=== PATIENT | male | born 1990 | race Caucasian/White ===

== ENCOUNTER 2020-06-10 18:55 | Emergency (ER) | payer OTHER, SELFPAY ==
[2020-06-10 19:02] VITALS: BP 115/63; PULSE 95; RESP 16; TEMP 36.4; O2SAT 99; BMI 26.4
== END 2020-06-10 22:20 | disposition left against medical advice (07) ==
LOC: HO.ED 22:20
PROVIDERS: Emergency Provider Emergency Medicine
DX: I10 Essential (primary) hypertension (principal)
CPT/HCPCS: 99281; 99282

== ENCOUNTER → 2020-06-17 13:42 | Outpatient (BNVA) | payer OTHER, SELFPAY | PROVIDERS: Visit Provider Physician Assistant | DX: Z76.89 Persons encountering health services in other specified circumstances (principal) ==

== ENCOUNTER 2020-07-12 02:31 | Emergency (ER) | payer OTHER, SELFPAY ==
[2020-07-12 02:33] VITALS: BP 114/67; PULSE 70; RESP 18; TEMP 36.6; O2SAT 98; BMI 27.7
--- NOTE | 2020-07-12 03:42 | PC.NURSE ---
PT REPORTS FRONTAL HEADACHEx1 WEEK. ASSOCIATED DIZZINESS. HEADACHE SQUEEZING IN NATURE. NO RELIEF FROM OTC TYLENOL. MD AT BEDSIDE FOR PRIMARY EVAL.
[2020-07-12 03:47] VITALS: BP 115/83; PULSE 78; RESP 18; O2SAT 98
--- NOTE | 2020-07-12 04:13 | ED_ITS ---
HPI - Headache General Chief Complaint: Headache Stated Complaint: headache Time Seen by Provider: 07/12/20 03:25 Source: patient Mode of arrival: ambulatory Limitations: no limitations History of Present Illness HPI Narrative: This is a 30-year-old male who presents with complaints of headache for the past 7 days that is not been associated with any fevers, chills, recent travel, personal or family history of intracranial abnormalities, changes in hearing, visual changes, photosensitivity, neck stiffness. Patient states that the headache is squeezing in nature and is like a band around his forehead and jehovah's witness area. However, patient denies any increase in pain with bending forward and states that the headache does not have a particular time of day and has been easily relieved by taking to 500 mg tablets of Tylenol. Patient states that he again woke up with a headache this morning and this prompted him to be further evaluated. In addition, patient denies any associated speech or unilateral numbness/weakness/tingling. Related Data Previous Rx's Medication Instructions Recorded pantoprazole 40 mg tablet,delayed 40 mg PO DAILY #30 tab 06/09/20 release sildenafil 100 mg tablet 100 mg PO DAILY PRN 30 Days #6 tab 07/01/20 Allergies Allergy/AdvReac Type Severity Reaction Status Date / Time No Known Allergies Allergy Unverified 04/16/20 19:12 [No Known Allergies*] Pt states no food/medication Allergy Unknown Uncoded 01/28/20 00:00 a Review of Systems Review of Systems: Pertinent positives and negatives as stated in HPI 10 point review of systems otherwise negative. [facility] Past Medical History Source: nursing notes reviewed Medical History H. pylori infection Surgical History S/P gastric bypass Family History Family History Father Bone cancer Hypertension Diabetes mellitus Hypercholesteremia Mother Diabetes mellitus Daughter Asthma Brother No problems noted. Brother No problems noted. Brother No problems noted. Brother No problems noted. Brother No problems noted. Sister No problems noted. Social History Social History Alcohol intake: current Alcohol intake frequency: a few times a month Smoking Status: Never smoker Cigarettes Per Day: 5 Use of substances other than those prescribed or required for medical reasons: No Advance Directives: No Advance Directives Information Provided: No Physical Exam Vital Signs: Vital Signs: Last Vital Signs Temp 97.9 F 07/12/20 02:33 Pulse 78 07/12/20 03:47 Resp 18 07/12/20 03:47 BP 115/83 07/12/20 03:47 Pulse Ox 98 07/12/20 03:47 Body Mass Index 27.7 VITAL SIGNS: Reviewed. GENERAL: Well developed, well nourished, in no acute distress. HEAD: Normocephalic/atraumatic, EYES: PERRLA, EOMI intact without pain, no nystagmus/pallor/icterus noted EARS: Ext canals without abnormality, TMs non-bulging and non-erythematous NOSE: Nares patent bilateral OROPHARYNX: no oral lesions noted, posterior pharynx clear and non-erythematous without noted tonsillar enlargement/erythema/exudates NECK: Supple, no adenopathy LUNGS: Normal breath sounds. No adventitious sounds or accessory muscle use. SpO2<98> CARDIOVASCULAR: Regular rate and rhythm without noted murmurs, no JVD or lower extremity edema. ABDOMEN: Soft, non-tender, non-distended with bowel sounds. No rigidity. No guarding. No palpable masses or hernias noted MUSCULOSKELETAL: No tenderness, deformities, or effusions noted on gross inspec tion. EXTREMITIES: No cyanosis, clubbing or edema. SKIN: Inspection of the skin reveals no rashes, ulcerations, jaundice, pallor, or petechiae. NEUROLOGIC: Alert and oriented x 4. Strength and sensation to light touch were grossly intact x 4, cerebellar testing is intact, no pronator drift, no gaze palsies. Course Course Course Narrative: This is a 30-year-old male with history and clinical presentation most consistent with tension headache that has no alarm symptoms associated with his headaches and is well controlled with [id number] Tylenol. He was provided with combination analgesics here in the emergency department which included a 1 time dose 15 mg of Toradol which it is noted is not recommended for patient is status post bariatric surgery, however given that this was a 1 time administration it was determined to be appropriate in accomplishing expedient symptom relief of headache. On re-evaluation patient has had complete resolution of his headache. Plan and reassurance was provided to the patient and he was strongly encouraged to follow-up with his primary care provider for re-evaluation and further outpatient management as indicated. Discharge Plan Discharge Clinical Impression: Tension headache Patient Disposition: Home, Self-Care Instructions: Tension Headache (ED), General Headache (ED) Additional Instructions: Tylenol 1000 mg, orally, every 6 hours as needed for pain control. Do not exceed 4000 mg within 24 hours. Please return to the emergency department if he develops any alarm symptoms such as leg or arm numbness/tingling/weakness, speech changes, unsteady gait. Prescriptions: No Action pantoprazole 40 mg tablet,delayed release (DR/EC) 40 mg PO DAILY Qty: 30 RF: 3 sildenafil 100 mg tablet 100 mg PO DAILY PRN (Reason: sexual activity) 30 Days Qty: 6 RF: 6 Referrals: Physician,Unknown [Primary Care Provider] - 2 days (Re-evaluation and outpatient management of headache.)
[2020-07-12] MEDS: Acetaminophen 325 MG TABLET 975 MG PO (04:21)
[2020-07-12] MEDS: Ketorolac Tromethamine 15 MG/ML VIAL IM (04:21)
--- NOTE | 2020-07-12 04:31 | PC.NURSE ---
PT MEDICATED PER MAR, AWAITING IMPROVEMENT IN SYMPTOMS.
== END 2020-07-12 05:46 | disposition home or self-care (01) ==
PROVIDERS: Emergency Provider Student in an Organized Health Care Education/Training Program
DX: G44.209 Tension-type headache, unspecified, not intractable (principal); Z98.84 Bariatric surgery status; Z79.899 Other long term (current) drug therapy
CPT/HCPCS: 96372; 99284; J1885

== ENCOUNTER 2020-11-22 20:53 | Emergency (ER) | payer OTHER, SELFPAY ==
[2020-11-22 21:19] VITALS: BP 133/61; PULSE 82; RESP 18; TEMP 36.8; O2SAT 99; BMI 29.9
[2020-11-22 21:37] LABS: MANUAL DIFF FLAG NO
[2020-11-22 21:38] LABS: Basophils Percent Auto 0.3 % (0-2); Eosinophils Absolute Auto 0.3 X10*3/uL (0.0-0.4); Glucose Urine UA NEG (NEG); Hematocrit 45.6 % (42-52); Hemoglobin 15.2 g/dl (14.0-18.0); Imm Gran Abs Auto 0.02 X10*3/uL (0.00-0.03); Imm Gran Pct Auto 0.2 % (0.0-0.4); Leukocyte Esterase Urine NEG (NEG); Lymphocytes Absolute Auto 2.9 X10*3/uL (1.2-4.9); Lymphocytes Percent Auto 29.4 % (20-40); Mean Corpuscular HGB Conc 33.3 g/dl (31.0-36.0); Mean Corpuscular Hemoglobin 28.3 pg (27.0-33.0); Mean Corpuscular Volume 84.9 fL (80-98); Mean Platelet Volume 10.4 fL (9.4-12.4); Monocytes Absolute Auto 0.9 X10*3/uL (0.1-1.2); Monocytes Percent Auto 8.9 % (2-11); Neutrophils Absolute Auto 5.6 X10*3/uL (2.0-8.3); Neutrophils Percent Auto 58.2 % (45-73); Nitrite Urine NEG (NEG); PH 5.5 (5.0-8.0); Platelet Count 238 X10*3/uL (160-400); Red Blood Count 5.37 X10*6/uL (4.60-5.80); Red Cell Distribution Width 12.4 % (11.0-16.0); Specific Gravity - Urine >= 1.030 (1.005-1.025); Urine Blood NEG (NEG); Urine Ketones 5 MG/DL (NEG); Urine Protein NEG (NEG-TRACE); White Blood Count 9.7 X10*3/uL (4.8-10.8)
[2020-11-22 21:39] LABS: Appearance Urine CLEAR; Color Urine YELLOW
[2020-11-22 22:02] LABS: Alanine Aminotransferase 18 U/L (0-40); Albumin Level 4.4 g/dL (3.5-5.0); Alkaline Phosphatase 58 U/L (39-117); Anion Gap 13 (12-20); Aspartate Amino Transferase 17 U/L (5-37); Bilirubin Total 0.5 mg/dL (0.0-1.0); Blood Urea Nitrogen 14 mg/dL (9-16); Calcium 9.3 mg/dL (8.4-10.2); Carbon Dioxide 25 mmol/L (22-29); Chloride 106 mmol/L (96-108); Creatinine Clr Calc Pharmacy 185.4; Estimated Glomerular Filt Rate > 60; Glucose Random 108 mg/dL (60-115); Potassium 3.9 mmol/L (3.3-5.1); Sodium 140 mmol/L (135-145); Total Protein 7.4 g/dL (6.5-8.0)
[2020-11-22] MEDS: Acetaminophen 325 MG TABLET 975 MG PO (23:20)
[2020-11-22] MEDS: Metoclopramide HCl 10 MG TABLET PO (23:20)
[2020-11-22] MEDS: diphenhydrAMINE HCL 25 MG TABLET 50 MG PO (23:20)
--- NOTE | 2020-11-22 23:21 | ED.HA ---
HPI - Headache General Chief Complaint: Headache Stated Complaint: Headache Time Seen by Provider: 11/22/20 22:55 Source: patient Mode of arrival: ambulatory Limitations: no limitations History of Present Illness HPI Narrative: Patient is a 30-year-old male who is status post gastric bypass complaining of headache x1 day. He states it is in his temples and it is a throbbing pain but he has not tried to take any medications to make it better. He states he does drink a lot of coffee and that has not helped. He states he gets them once in a while because he never sleeps more than 4 hours at a time. He denies any nausea vomiting dizziness blurry vision, sensitivity to light or noise. Denies fevers Related Data Previous Rx's Medication Instructions Recorded pantoprazole 40 mg tablet,delayed 40 mg PO DAILY #30 tab 06/09/20 release sildenafil 100 mg tablet 100 mg PO DAILY PRN 30 Days #6 tab 07/01/20 Allergies Allergy/AdvReac Type Severity Reaction Status Date / Time No Known Allergies Allergy Unverified 04/16/20 19:12 [No Known Allergies*] Pt states no food/medication Allergy Unknown Uncoded 01/28/20 00:00 a Review of Systems Review of Systems: Yes all other systems are reviewed and are negative ENT: Reports Normal hearing present Neurologic: Reports Normal hearing present and Denies Abnormal speech present [facility] Past Medical History Medical History H. pylori infection Surgical History S/P gastric bypass Family History Family History Father Bone cancer Hypertension Diabetes mellitus Hypercholesteremia Mother Diabetes mellitus Daughter Asthma Brother No problems noted. Brother No problems noted. Brother No problems noted. Brother No problems noted. Brother No problems noted. Sister No problems noted. Social History Social History Alcohol intake: current Alcohol intake frequency: a few times a month Smoking Status: Never smoker Cigarettes Per Day: 5 Advance Directives: No Advance Directives Information Provided: Yes Physical Exam Vital Signs: Vital Signs: Last Vital Signs Temp 98.3 F 11/22/20 21:19 Pulse 82 11/22/20 21:19 Resp 18 11/22/20 21:19 BP 133/61 11/22/20 21:19 Pulse Ox 99 11/22/20 21:19 Body Mass Index 29.9 Const: General: cooperative, healthy appearing, comfortable and no acute distress Nutritional Appearance: average body habitus Orientation/consciousness: patient oriented x3 HENMT: Head: Yes normal to inspection, Yes normocephalic and Yes atraumatic Ears: hearing grossly normal bilaterally General nose exam: Normal external nose present Face and sinus: Yes normal facial exam Eyes: General: appearance normal, both eyes and all related structures Pupils: Equal, round and reactive pupils present EOM: EOMs intact bilaterally and No Nystagmus present Neck: Neck: Yes normal visual inspection, Yes full ROM and Yes supple Resp: Effort & Inspection: normal respiratory effort and able to speak in complete sentences Neuro: General: patient oriented x3 Cranial nerves: Yes Equal, round and reactive pupils present, Yes Nystagmus not present, Yes Normal facial strength present, Yes Midline tongue present, Yes Normal hearing present, Yes Ability to bilaterally rotate head present and No Nystagmus present Cognition (Neuro): normal cognition Speech: No Abnormal speech present Gait exam (Neuro): Normal gait present Course Course Course Narrative: Patient is a 30-year-old male with headache x1 day, has not tried to take any medications. All labs are within normal limits, will give a migraine cocktail and reassess. Educated patient on migraine triggers as well as migraine management at home. Also advised patient he should seek with his PCP regarding his sleep issues, if that is his trigger. Reevaluation(s) Reevaluation #1: Patient reports he is feeling much better, will discharge home. Time: 23:54 MDM - Headache Lab Data Result diagrams: 11/22/20 21:30 11/22/20 21:30 Labs: Lab Results 11/22/20 11/22/20 11/22/20 Range/Units 21:30 21:30 21:30 WBC 9.7 (4.8-10.8) X10*3/uL RBC 5.37 (4.60-5.80) X10*6/uL Hgb 15.2 (14.0-18.0) g/dl Hct 45.6 (42-52) % MCV 84.9 (80-98) fL MCH 28.3 (27.0-33.0) pg MCHC 33.3 (31.0-36.0) g/dl RDW 12.4 (11.0-16.0) % Plt Count 238 (160-400) X10*3/uL MPV 10.4 (9.4-12.4) fL Immature Gran % (Auto) 0.2 (0.0-0.4) % Neut % (Auto) 58.2 (45-73) % Lymph % (Auto) 29.4 (20-40) % [place] % (Auto) 8.9 (2-11) % Eos % (Auto) 3.0 (0-4) % Baso % (Auto) 0.3 (0-2) % Lymph # (Auto) 2.9 (1.2-4.9) X10*3/uL [place] # (Auto) 0.9 (0.1-1.2) X10*3/uL Eos # (Auto) 0.3 (0.0-0.4) X10*3/uL Baso # (Auto) 0.0 (0.0-0.2) X10*3/uL Abs Immat Gran (auto) 0.02 (0.00-0.03) X10*3/uL Absolute Neuts (auto) 5.6 (2.0-8.3) X10*3/uL Absolute Nucleated RBC 0.000 (0.0-0.012) X10*3/uL Nucleated RBC % (auto) 0.0 (0.0-0.2) /100WBC Hold Blue Top SEE NOTE Sodium 140 (135-145) mmol/L Potassium 3.9 (3.3-5.1) mmol/L Chloride 106 (96-108) mmol/L Carbon Dioxide 25 (22-29) mmol/L Anion Gap 13 (12-20) BUN 14 (9-16) mg/dL Creatinine 0.86 (0.5-1.4) mg/dL Estim Creat Clear Calc 185.4 Estimated GFR > 60 Random Glucose 108 (60-115) mg/dL Calcium 9.3 (8.4-10.2) mg/dL Total Bilirubin 0.5 (0.0-1.0) mg/dL AST 17 (5-37) U/L ALT 18 (0-40) U/L Alkaline Phosphatase 58 (39-117) U/L Total Protein 7.4 (6.5-8.0) g/dL Albumin 4.4 (3.5-5.0) g/dL Urine Color Urine Appearance Urine pH (5.0-8.0) Ur Specific [place] (1.005-1.025) Urine Protein (NEG-TRACE) MG/DL Urine Glucose (UA) (NEG) MG/DL Urine Ketones (NEG) MG/DL Urine Blood (NEG) Urine Nitrite (NEG) Ur Leukocyte Esterase (NEG) 11/22/20 Range/Units 21:30 WBC (4.8-10.8) X10*3/uL RBC (4.60-5.80) X10*6/uL Hgb (14.0-18.0) g/dl Hct (42-52) % MCV (80-98) fL MCH (27.0-33.0) pg MCHC (31.0-36.0) g/dl RDW (11.0-16.0) % Plt Count (160-400) X10*3/uL MPV (9.4-12.4) fL Immature Gran % (Auto) (0.0-0.4) % Neut % (Auto) (45-73) % Lymph % (Auto) (20-40) % [place] % (Auto) (2-11) % Eos % (Auto) (0-4) % Baso % (Auto) (0-2) % Lymph # (Auto) (1.2-4.9) X10*3/uL [place] # (Auto) (0.1-1.2) X10*3/uL Eos # (Auto) (0.0-0.4) X10*3/uL Baso # (Auto) (0.0-0.2) X10*3/uL Abs Immat Gran (auto) (0.00-0.03) X10*3/uL Absolute Neuts (auto) (2.0-8.3) X10*3/uL Absolute Nucleated RBC (0.0-0.012) X10*3/uL Nucleated RBC % (auto) (0.0-0.2) /100WBC Hold Blue Top Sodium (135-145) mmol/L Potassium (3.3-5.1) mmol/L Chloride (96-108) mmol/L Carbon Dioxide (22-29) mmol/L Anion Gap (12-20) BUN (9-16) mg/dL Creatinine (0.5-1.4) mg/dL Estim Creat Clear Calc Estimated GFR Random Glucose (60-115) mg/dL Calcium (8.4-10.2) mg/dL Total Bilirubin (0.0-1.0) mg/dL AST (5-37) U/L ALT (0-40) U/L Alkaline Phosphatase (39-117) U/L Total Protein (6.5-8.0) g/dL Albumin (3.5-5.0) g/dL Urine Color YELLOW Urine Appearance CLEAR Urine pH 5.5 (5.0-8.0) Ur Specific [place] >= 1.030 H (1.005-1.025) Urine Protein NEG (NEG-TRACE) MG/DL Urine Glucose (UA) NEG (NEG) MG/DL Urine Ketones 5 (NEG) MG/DL Urine Blood NEG (NEG) Urine Nitrite NEG (NEG) Ur Leukocyte Esterase NEG (NEG) Discharge Plan Discharge Clinical Impression: Headache Patient Disposition: Home, Self-Care Instructions: Acute Headache (ED) Additional Instructions: As we discussed, please stay way from anything that triggers your migraines such as caffeine, chocolate and red wine, it is also imperative you get a good night's sleep and stay hydrated. I would recommend following up with your primary care doctor to address her sleep issues to avoid having migraines in the future. Also if this happens again, you can try taking some Benadryl with some Excedrin for relief. Follow the instructions on the bottles. Prescriptions: No Action pantoprazole 40 mg tablet,delayed release (DR/EC) 40 mg PO DAILY Qty: 30 RF: 3 sildenafil 100 mg tablet 100 mg PO DAILY PRN (Reason: sexual activity) 30 Days Qty: 6 RF: 6
== END 2020-11-23 00:02 | disposition home or self-care (01) ==
PROVIDERS: Emergency Provider Student in an Organized Health Care Education/Training Program
DX: R51.9 Headache, unspecified (principal); Z98.84 Bariatric surgery status
CPT/HCPCS: 36415; 80053; 81003; 85025; 99283; Q0163

== ENCOUNTER → 2021-01-26 13:59 | Outpatient (BNVA) | payer OTHER, SELFPAY | PROVIDERS: Visit Provider Physician Assistant | DX: E66.9 Obesity, unspecified (principal); Z68.31 Body mass index [BMI] 31.0-31.9, adult; Z98.84 Bariatric surgery status | CPT/HCPCS: 99212 ==

== ENCOUNTER → 2021-01-27 15:29 | Outpatient (BNVA) | payer OTHER, SELFPAY | PROVIDERS: Visit Provider Urology | DX: N52.9 Male erectile dysfunction, unspecified (principal) | CPT/HCPCS: 99212 ==

== ENCOUNTER 2021-03-30 03:40 | Emergency (ER) | payer OTHER, SELFPAY ==
[2021-03-30 03:55] VITALS: BP 127/73; PULSE 76; RESP 18; TEMP 36.4; O2SAT 98; BMI 23.1
--- NOTE | 2021-03-30 04:42 | ED_ITS ---
HPI - Headache General Chief Complaint: Headache Stated Complaint: headache Time Seen by Provider: 03/30/21 04:42 Source: patient Mode of arrival: ambulatory History of Present Illness HPI Narrative: 30-year-old male presents with headache that he states are soon neck in comes up over the back of his head in is squeezing around his head is. He denies any auditory/visual/speech changes and states that these are very similar to his prior headaches. He denies any dizziness, nausea or photosensitivity. Related Data Home Medications Medication Instructions Recorded Confirmed calcium carbonate 600 mg calcium 600 mg PO DAILY 01/26/21 01/26/21 (1,500 mg) tablet [id number] 45 mg-folic cap PO 01/26/21 01/26/21 acid 800 mcg-vit K 120 mcg capsule (Bariatric Multivitamins) Previous Rx's Medication Instructions Recorded pantoprazole 40 mg tablet,delayed 40 mg PO DAILY #30 tab 06/09/20 release sildenafil 100 mg tablet 100 mg PO DAILY PRN 30 Days #6 tab 01/15/21 tadalafil 5 mg tablet 5 mg PO DAILY PRN 90 Days #90 tab 01/27/21 Allergies Allergy/AdvReac Type Severity Reaction Status Date / Time Pt states no food/medication Allergy Unknown Anaphylaxis Uncoded 01/26/21 14:18 a Review of Systems Review of Systems: Pertinent positives and negativea as stated in HPI 10 point review systems is otherwise negative. [facility] Past Medical History Source: nursing notes reviewed Medical History Erectile dysfunction H. pylori infection Surgical History S/P gastric bypass Family History Family History Father Bone cancer Hypertension Diabetes mellitus Hypercholesteremia Mother Diabetes mellitus Daughter Asthma Brother No problems noted. Brother No problems noted. Brother No problems noted. Brother No problems noted. Brother No problems noted. Sister No problems noted. Social History Social History Alcohol intake: current Alcohol intake frequency: a few times a month Cigarettes Per Day: 5 Advance Directives: No Physical Exam Vital Signs: Vital Signs: Last Vital Signs Temp 97.5 F 03/30/21 03:55 Pulse 76 03/30/21 03:55 Resp 18 03/30/21 03:55 BP 127/73 03/30/21 03:55 Pulse Ox 98 03/30/21 03:55 Body Mass Index 23.1 VITAL SIGNS: Reviewed. GENERAL: Well developed, well nourished, in no acute distress. HEAD: Normocephalic/atraumatic EYES: PERRLA, EOMI EARS: Ext canals without abnormality, TMs non-bulging and non-erythematous NOSE: Nares patent bilateral OROPHARYNX: no oral lesions noted, posterior pharynx clear NECK: Supple, no adenopathy LUNGS: Normal breath sounds. No adventitious sounds or accessory muscle use. SpO2<98> CARDIOVASCULAR: Regular rate and rhythm without noted murmurs ABDOMEN: Soft, non-tender, non-distended with bowel sounds. MUSCULOSKELETAL: No tenderness, deformities, or effusions noted on gross inspection. EXTREMITIES: No cyanosis, clubbing or edema. SKIN: Inspection of the skin reveals no rashes, ulcerations, jaundice, pallor, or petechiae. NEUROLOGIC: Alert and oriented x 4. Strength and sensation to light touch were grossly intact x 4. Course Course Course Narrative: 31-year-old male with history and clinical presentation consistent with headache, most likely tension, low clinical suspicion for significant neurologic dysfunction. Patient treated with combination analgesics and on re-evaluation states that he has had complete resolution of the pain. He was encouraged to follow-up with his primary care provider. MDM - Headache Lab Data Labs: Lab Results 03/30/21 Range/Units 04:47 COVID-19 ([facility]) Negative (Negative) COVID-19 Clin Com See Note Discharge Plan Discharge Clinical Impression: Headache Patient Disposition: Home, Self-Care Instructions: Acute Headache (ED) Additional Instructions: Tylenol 1000 mg, orally, every 6 hours as needed for headache. Do not exceed 4000 mg within 24 hours. Ibuprofen 400 mg, orally with milk or food, every 6 hours as needed for headache. Prescriptions: No Action pantoprazole 40 mg tablet,delayed release (DR/EC) 40 mg PO DAILY Qty: 30 RF: 3 sildenafil 100 mg tablet 100 mg PO DAILY PRN (Reason: sexual activity) 30 Days Qty: 6 RF: 6 tadalafil 5 mg tablet 5 mg PO DAILY PRN (Reason: sexual activity) 90 Days Qty: 90 RF: 1 calcium carbonate 600 mg calcium (1,500 mg) tablet 600 mg PO DAILY RF: 0 Bariatric Multivitamins 45 mg iron- 800 mcg-120 mcg capsule PO RF: 0 Referrals: Physician,Unknown [Primary Care Provider] - 2 days Stand Alone Forms: Work/School Release Interventions: ED Discharge Assessment Last Done: 03/30/21 08:00 Discharge Date/Time: 03/30/21 08:00
[2021-03-30] MEDS: Acetaminophen 325 MG TABLET 975 MG PO (05:05)
[2021-03-30] MEDS: Ketorolac Tromethamine 15 MG/ML VIAL IM (05:05)
[2021-03-30 05:06] LABS: COVID-19 Test Negative (Negative); IDNOW Serial# 9DD0AD1C
--- NOTE | 2021-03-30 08:02 | PC.NURSE ---
care taken over for this pt. pt is aox3 speaking in full clear sentences, skin pwd, resp even and unlabored. pt denies any complaints at this time. plan for pt to be dc and pt denied having any questions at this time.
== END 2021-03-30 08:00 | disposition home or self-care (01) ==
PROVIDERS: Emergency Provider Student in an Organized Health Care Education/Training Program
DX: R51.9 Headache, unspecified (principal); Z20.822 Contact with and (suspected) exposure to COVID-19; Z98.84 Bariatric surgery status
CPT/HCPCS: 36415; 87635; 96372; 99283; 99284; J1885

== ENCOUNTER 2022-04-15 06:20 | Emergency (ER) | payer OTHER, SELFPAY ==
[2022-04-15 07:05] VITALS: BP 141/88; PULSE 63; RESP 18; TEMP 36.6; O2SAT 98; BMI 28.1
--- NOTE | 2022-04-15 07:55 | ED_ITS ---
HPI - Dental/Oral General Chief complaint: Dental/Oral Stated complaint: dental pain Time Seen by Provider: 04/15/22 07:45 Source: patient Mode of arrival: ambulatory Limitations: no limitations History of Present Illness HPI Narrative: 32-year-old male who presents emergency department for evaluation of left upper dental pain. He states that the pain started yesterday and got more severe. States he was unable sleep overnight secondary to his pain. States the pain is a constant, dull ache which is 10/10 at its worst. He has not noticed any swelling of his face. He denied fever or chills. He denied headache or stiff neck. He has had no ear pain or changes hearing. He denied weakness or fatigue. He states that his sister gave him 1 pill which she told him was like morphine but this did not help his pain. Patient has a history of gastric bypass and cannot take NSAIDs. MD Complaint: tooth pain Location: Tooth # (Pain with palpation of teeth 10 through 16) Teeth map: 1. 2. 3. 4. 5. 6. Onset (ago): day(s) (2) Duration: constant Severity: severe Severity scale (1-10): 10 Relieving factors: nothing Exacerbating factors: nothing Context: history of dental caries Treatment prior to arrival: other (A pill that his sister states was like morphine) Related Data Home Medications Medication Instructions Recorded Confirmed calcium carbonate 600 mg calcium 600 mg PO DAILY 01/26/21 01/26/21 (1,500 mg) tablet [id number]-[id number]-[id number] 45 mg-folic cap PO 01/26/21 01/26/21 acid 800 mcg-vit K 120 mcg capsule (Bariatric Multivitamins) Previous Rx's Medication Instructions Recorded pantoprazole 40 mg tablet,delayed 40 mg PO DAILY #30 tabs 06/09/20 release sildenafil 100 mg tablet 100 mg PO DAILY PRN sexual 01/15/21 activity 30 days #6 tabs tadalafil 5 mg tablet 5 mg PO DAILY PRN sexual activity 01/27/21 90 days #90 tabs oxycodone 5 mg tablet 5 mg PO Q4H PRN pain #14 tabs 04/15/22 penicillin V potassium 500 mg 500 mg PO TID #7 tabs 04/15/22 tablet Allergies Allergy/AdvReac Type Severity Reaction Status Date / Time Pt states no food/medication Allergy Unknown Anaphylaxis Uncoded 01/26/22 11:57 a Review of Systems Review of Systems: Yes all other systems are reviewed and are negative [facility]LY [facility], [facility] Past Medical History FOR[facility], [facility] Narrative: Social history: He occasionally smokes cigarettes. Denies alcohol use. He denies drug use. Medical History Erectile dysfunction H. pylori infection Surgical History S/P gastric bypass Family History Family History Father Bone cancer Hypertension Diabetes mellitus Hypercholesteremia Mother Diabetes mellitus Daughter Asthma Brother No problems noted. Brother No problems noted. Brother No problems noted. Brother No problems noted. Brother No problems noted. Sister No problems noted. Social History Social History Alcohol intake: current Alcohol intake frequency: a few times a month Cigarettes Per Day: 5 Advance Directives: No Advance Directives Information Provided: Yes Physical Exam Vital Signs: Vital Signs: Last Vital Signs Temp 98 F 04/15/22 07:05 Pulse 63 04/15/22 07:05 Resp 18 04/15/22 07:05 BP 141/88 H 04/15/22 07:05 Pulse Ox 98 04/15/22 07:05 O2 Del Method 04/15/22 07:05 BMI result Body Mass Index 28.1 Course Course Course Narrative: 32-year-old male who presents emergency department for evaluation of upper jaw pain x2 days with increased pain overnight. Patient took a morphine like medication that was given to him by his sister which did not relieve his pain. He has had no systemic symptoms. Physical examination did reveal tenderness with palpation of the teeth on his left upper jaw 1016, there is no gingival swelling or tenderness, there is no obvious dental caries noted on my exam. Patient's presentation is consistent with a dental infection possible abscess verses root infection. I did discuss this with the patient. The patient was started on penicillin 500 mg 3 times a day for 7 days. He is advised to take Tylenol and for pain not relieved by Tylenol he was prescribed oxycodone. He was given printed and verbal instructions advised to follow-up with his dentist for re-evaluation. Discharge Plan Discharge Clinical Impression: Dental infection Patient Disposition: Home, Self-Care Instructions: Dental Abscess (ED) Additional Instructions: Your examination was unremarkable but your presentation is consistent with a dental infection possible- abscess or root infection. Take penicillin 500 mg pills, 1 pill 3 times a day for 7 days. Finish the entire antibiotic prescription. Take Tylenol (acetaminophen) 500 mg pills, 2 pills every 4-6 hours as needed for pain. For pain not relieved by Tylenol take oxycodone 5 mg pills, 1 pill every 4 hours as needed for pain. Do not drive or work while taking this medication since they can cause sleepiness. Oxycodone is a narcotic medication that can be addicting. If you are concerned about addiction you can ask the pharmacist for less pills or do not get this prescription filled. Follow-up with your dentist in 2 days. Please return to the emergency department if your symptoms get worse or if you develop any symptoms that are concerning to you. Prescriptions: New penicillin V potassium 500 mg tablet 500 mg PO TID Qty: 7 0RF oxycodone 5 mg tablet 5 mg PO Q4H PRN (Reason: pain) Qty: 14 0RF Rx Instructions: Patient may request partial fill; Partial Fill upon patient request. No Action pantoprazole 40 mg tablet,delayed release (DR/EC) 40 mg PO DAILY Qty: 30 3RF sildenafil 100 mg tablet 100 mg PO DAILY PRN (Reason: sexual activity) 30 Days Qty: 6 6RF Rx Instructions: administer 30 minutes to 4 hours before activity tadalafil 5 mg tablet 5 mg PO DAILY PRN (Reason: sexual activity) 90 Days Qty: 90 1RF calcium carbonate 600 mg calcium (1,500 mg) tablet 600 mg PO DAILY Bariatric Multivitamins 45 mg iron- 800 mcg-120 mcg capsule PO
== END 2022-04-15 08:47 | disposition home or self-care (01) ==
PROVIDERS: Emergency Provider Emergency Medicine Emergency Medical Services
DX: K04.7 Periapical abscess without sinus (principal); K08.89 Other specified disorders of teeth and supporting structures; K02.9 Dental caries, unspecified; F17.210 Nicotine dependence, cigarettes, uncomplicated; Z98.84 Bariatric surgery status
CPT/HCPCS: 99282; 99283

== ENCOUNTER 2023-06-08 10:13 | Outpatient (AMB) | payer MEDICAID, SELFPAY ==
--- NOTE | 2023-06-08 10:20 | A.OFFVIS_ITS ---
Intake VS Expanded 06/08/23 10:29 BP 128/78 Blood Pressure Location Rt brachial Blood Pressure Position Sitting Pulse 70 Pulse Source Pulse Oximeter Temp 98.1 F Temperature Source Tympanic Pulse Oximetry 99 Oxygen Delivery Method Room Air Height 6 ft 6 in Weight 288 lb BMI 33.3 Body Fat % 32.6 Body Fat Mass 94.0 Fat Free Mass 194.0 Visceral Fat Rating 14.0 Body Water % 46.2 Body Water Mass 133.2 Muscle Mass/Score 184.6 Basal Metabolic Rate/Score 2,713 Intake Visit Reasons: (OV) 4YR POST GBP Allergies Pt states no food/medication a Allergy (Unknown, Uncoded 06/08/23 10:24) Anaphylaxis HPI HPI Comments History of Present Illness Details 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 Pt is asking for refill on tadalafil for ED. Has run out and can not get appt with Dr Miri berger July. BP normal. Work hours 7 am - 6pm , M- Monday. 6am - coffee - 1 large -black no sugar candies only throughout the day 6pm - rice/beef or 8 ozor more chicken. vegetables 3-4 d/ week. eats large portions. Diet Coke after dinner - 1 serving fruit Wakes up hungry in the middle of night and eats more fruit or bread and chese twice per night. ETOH - 2 times per month Doesn't exercise because of his work schedule. [facility] Medical History Erectile dysfunction H. pylori infection Surgical History S/P gastric bypass Family History Father Bone cancer Hypertension Diabetes mellitus Hypercholesteremia Mother Diabetes mellitus Daughter Asthma Brother No problems noted. Brother No problems noted. Brother No problems noted. Brother No problems noted. Brother No problems noted. Sister No problems noted. Social History Alcohol intake: current Alcohol intake frequency: a few times a month Cigarettes Per Day: 5 Assessment & Plan Assessment & Plan (1) Obesity: Code(s): E66.9 - Obesity, unspecified Plan: 40 lbs weight gain 6 + years post op. Pt has eating behaviors that he needs to change. Stop grazing on candy during the day. Stop all eating after going to sleep Eats 3 meals per day aot 10am, 2pm and 6 pm, limit portion size to 6 oz protien and 6 oz vegetable, 4 oz rice Fruit after dinner Will get labs drawn today. Tadalafil script written no refills, has about with Dr Barcenas in July. Next appt with Julia in 2 months and in 6 months. Patient is obese and is not considered stable at this time. I spent 30minutes in total with patient reviewing/updating records, examining the patient and counseling the patient on weight management as detailed above. (2) S/P gastric bypass: Code(s): Z98.84 - Bariatric surgery status (3) Erectile dysfunction: Code(s): N52.9 - Male erectile dysfunction, unspecified Orders: Orders Lipid Panel Today E66.9 - Obesity, unspecified, Z98.84 - Bariatric surgery status Complete Blood Count Auto Diff Today E66.9 - Obesity, unspecified, Z98.84 - Bariatric surgery status Vitamin B12 and Folate Today E66.9 - Obesity, unspecified, Z98.84 - Bariatric surgery status Zinc Today E66.9 - Obesity, unspecified, Z98.84 - Bariatric surgery status Vitamin B1 Today E66.9 - Obesity, unspecified, Z98.84 - Bariatric surgery status C Reactive Protein Today E66.9 - Obesity, unspecified, Z98.84 - Bariatric surgery status Ferritin Today E66.9 - Obesity, unspecified, Z98.84 - Bariatric surgery status TSH reflex Free T4 Today E66.9 - Obesity, unspecified, Z98.84 - Bariatric surgery status Insulin Today E66.9 - Obesity, unspecified, Z98.84 - Bariatric surgery status IRON PROFILE Today E66.9 - Obesity, unspecified, Z98.84 - Bariatric surgery status Comprehensive Met. Panel Today E66.9 - Obesity, unspecified, Z98.84 - Bariatric surgery status Vitamin A Today E66.9 - Obesity, unspecified, Z98.84 - Bariatric surgery status PTHI Today E66.9 - Obesity, unspecified, Z98.84 - Bariatric surgery status Vitamin D 25-OH Total Today E66.9 - Obesity, unspecified, Z98.84 - Bariatric surgery status Hemoglobin A1c Today E66.9 - Obesity, unspecified, Z98.84 - Bariatric surgery status Medications: New tadalafil 5 mg PO DAILY 60 tabs 0RF Coding Level of Care Code Est Pt Level 4 (96738) Diagnoses Obesity E66.9 S/P gastric bypass Z98.84 Erectile dysfunction N52.9
[2023-06-08 10:29] VITALS: BP 128/78; PULSE 70; TEMP 36.7; O2SAT 99; BMI 33.3
== END 2023-06-08 11:14 | disposition home or self-care (01) ==
PROVIDERS: Visit Provider Physician Assistant
DX: E66.9 Obesity, unspecified (principal); Z98.84 Bariatric surgery status; N52.9 Male erectile dysfunction, unspecified
CPT/HCPCS: 99214

== ENCOUNTER 2023-06-08 10:13 | Outpatient (REF) | payer MEDICAID, SELFPAY ==
[2023-06-08 11:45] LABS: MANUAL DIFF FLAG NO
[2023-06-08 12:04] LABS: Basophils Absolute Auto 0.1 X10*3/uL (0.0-0.2); Basophils Percent Auto 0.5 % (0-2); Eosinophils Absolute Auto 0.2 X10*3/uL (0.0-0.4); Eosinophils Percent Auto 1.9 % (0-4); Hematocrit 44.8 % (42.0-52.0); Hemoglobin 14.9 g/dl (14.0-18.0); Imm Gran Abs Auto 0.04 X10*3/uL (0.00-0.03); Imm Gran Pct Auto 0.4 % (0.0-0.4); Lymphocytes Absolute Auto 2.7 X10*3/uL (1.2-4.9); Lymphocytes Percent Auto 27.9 % (20-40); Mean Corpuscular HGB Conc 33.3 g/dl (31.0-36.0); Mean Corpuscular Hemoglobin 28.3 pg (27.0-33.0); Mean Corpuscular Volume 85.2 fL (80.0-98.0); Mean Platelet Volume 10.9 fL (9.4-12.4); Monocytes Absolute Auto 0.9 X10*3/uL (0.1-1.2); Neutrophils Absolute Auto 5.9 x10*3/uL (2.0-8.3); Neutrophils Percent Auto 60.3 % (45-73); Platelet Count 270 X10*3/uL (160-400); Red Blood Count 5.26 X10*6/uL (4.60-5.80); Red Cell Distribution Width 12.6 % (11.0-16.0); White Blood Count 9.7 X10*3/uL (4.8-10.8)
[2023-06-08 12:16] LABS: Estimated Average Glucose 94 mg/dL; Hemoglobin A1c % 4.9 % (<6.0)
[2023-06-08 13:02] LABS: Alanine Aminotransferase 27 U/L (0-40); Albumin Level 4.4 g/dL (3.5-5.0); Alkaline Phosphatase 67 U/L (39-117); Anion Gap 11 (12-20); Aspartate Amino Transferase 19 U/L (5-37); Bilirubin Total 0.9 mg/dL (0.0-1.0); Blood Urea Nitrogen 14 mg/dL (9-16); C Reactive Protein 0.26 mg/dL (< or = 0.50); Calcium 8.9 mg/dL (8.4-10.2); Carbon Dioxide 27 mmol/L (22-29); Chloride 106 mmol/L (96-108); Cholesterol 149 mg/dL (<200); Estimated Glomerular Filt Rate > 60; Glucose Random 96 mg/dL (60-115); HDL Cholesterol 33 mg/dL (>40); Iron 109 mcg/dL (45-160); LDL Cholesterol Calculated 89 mg/dL (<100); Percent Iron Saturation 40 % (15-50); Potassium 4.2 mmol/L (3.3-5.1); Sodium 140 mmol/L (135-145); Total Iron Binding Capacity 272 mcg/dL (228-428); Total Protein 7.7 g/dL (6.5-8.0); Triglycerides 138 mg/dL (<150); Unsaturated Iron Binding 163 ug/dL
[2023-06-08 13:05] LABS: Ferritin 138 ng/mL (20-250); Insulin 8 uU/mL (2-29); Vitamin D 25-OH Total 29.2 ng/mL (>30)
[2023-06-08 13:11] LABS: Folate 13.1 ng/mL (> or = 4.0); Vitamin B12 510 pg/mL (200-900)
[2023-06-12 12:19] LABS: Zinc 60 mcg/dL (60-130)
[2023-06-12 17:28] LABS: Calcium (PTHI) 9.4 mg/dL (8.6-10.3); PTHI 70 pg/mL (16-77)
[2023-06-14 03:39] LABS: Vitamin A 54 mcg/dL (38-98)
[2023-06-14 12:59] LABS: Vitamin B1 13 nmol/L (8-30)
== END 2023-06-08 10:14 | disposition home or self-care (01) ==
LOC: HO.LAB 10:13
PROVIDERS: Visit Provider Physician Assistant
DX: E66.9 Obesity, unspecified (principal); N52.9 Male erectile dysfunction, unspecified; Z98.84 Bariatric surgery status
CPT/HCPCS: 36415; 80053; 80061; 82306; 82607; 82728; 82746; 83036; 83525; 83540; 83970; 84425; 84443; 84590; 84630; 85025; 86140; 99212

== ENCOUNTER 2023-08-07 09:58 | Outpatient (AMB) | payer MEDICAID, SELFPAY ==
--- NOTE | 2023-08-07 10:04 | MHC.AMNUTRGE ---
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 Pt saw Ruthann COURTNEY 2 MO ago Pt declined the use of an kyrgyz communications engineer today. Diet Assmnt Details wakes up at 5:30a 10am eggs midafternoon varies, sometimes eats , sometimes skips. Has the bars too dinner between 6-8pm Biggest issue is waking up at night and wanting to eat/snack. Identified that he has a lot of stress and thoughts about work which keep him up at night. Uses food to soothe Exercise; 3 days per week Learning/Education Educational materials provided Yes Most Recent Diabetes Results: Cholesterol 149 mg/dL (<200) 06/08/23 HDL Cholesterol 33 mg/dL (>40) L 06/08/23 Triglycerides 138 mg/dL (<150) 06/08/23 Creatinine 0.82 mg/dL (0.5-1.4) 06/08/23 Blood Urea Nitrogen 14 mg/dL (9-16) 06/08/23 Sodium 140 mmol/L (135-145) 06/08/23 Potassium 4.2 mmol/L (3.3-5.1) 06/08/23 Chloride 106 mmol/L (96-108) 06/08/23 Carbon Dioxide 27 mmol/L (22-29) 06/08/23 Calcium 8.9 mg/dL (8.4-10.2) 06/08/23 AST 19 U/L (5-37) 06/08/23 ALT 27 U/L (0-40) 06/08/23 Total Protein 7.7 g/dL (6.5-8.0) 06/08/23 Albumin 4.4 g/dL (3.5-5.0) 06/08/23 [facility] Medical History Erectile dysfunction H. pylori infection Surgical History S/P gastric bypass Family History Father Bone cancer Hypertension Diabetes mellitus Hypercholesteremia Mother Diabetes mellitus Daughter Asthma Brother No problems noted. Brother No problems noted. Brother No problems noted. Brother No problems noted. Brother No problems noted. Sister No problems noted. Social History Alcohol intake: current Alcohol intake frequency: a few times a month Cigarettes Per Day: 5 Assessment & Plan Assessment & Plan (1) Obesity (BMI 30-39.9): Code(s): E66.9 - Obesity, unspecified Plan Identified emotional eating (stress) and pt agreeable to increasing exercise to help cope w stress and potentially sleep better. Also provided some educational handouts in kyrgyz language ([email or web address]) , which pt ade was very helpful . Discussed considering therapist but pt not interested at this time. Coding Level of Care Code Nutr Indiv Subseq (58250) Diagnoses Obesity (BMI 30-39.9) E66.9 Time Spent (min) 25
== END 2023-08-07 11:15 | disposition home or self-care (01) ==
PROVIDERS: Visit Provider Dietitian, Registered
DX: E66.9 Obesity, unspecified (principal)

== ENCOUNTER → 2023-08-07 09:58 | Outpatient (BNVA) | payer MEDICAID, SELFPAY | PROVIDERS: Visit Provider Dietitian, Registered | DX: E66.9 Obesity, unspecified (principal) | CPT/HCPCS: 97803 ==

== ENCOUNTER 2023-08-08 10:58 | Outpatient (AMB) | payer MEDICAID, SELFPAY ==
--- NOTE | 2023-08-08 11:06 | A.OFFVIS_ITS ---
Intake Intake Visit Reasons: follow up/erectile dysfunction Intake Note: Patient is Present for Follow Up Erectile Dysfunction Urology Medication: Tadalafil Antibiotic Allergies: None Blood Thinners: None Patient states that he needs his refill on Tadalafil. Patient has not been on m edication due to pending appt with Dr Barcenas. Allergies Pt states no food/medication a Allergy (Unknown, Uncoded 08/08/23 11:13) Anaphylaxis Medication List - Last Reconciled 09/04/23 by Raza Barcenas MD cholecalciferol (vitamin D3) 25 mcg PO DAILY sildenafil 100 mg PO DAILY PRN 30 days tadalafil 5 mg PO DAILY tadalafil 5 mg PO DAILY 90 days HPI HPI Comments History of Present Illness Details Itzel is a very pleasant Spanish male. They are a patient of Dr Dillon. They are seen in the office today for the following urologic conditions. - erectile dysfunction Good response to daily tadalafil Refill provided Six-month follow-up Erectile dysfunction: Good response to low-dose tadalafil Refill provided Review 1 year. He presents today for for continued evaluation and management of erectile dysfunction. Symptoms have been present for/since since 2018 after weight loss surgery. Current treament includes Daily tadalafil. At this time he experiences erections 2/20 , are partial and adequate for vaginal penetration, that undergo rapid detumesence after penetration, GARFIELD 8-11 Moderate ED. Nocturnal erections do occur. Currently they are in a stable relationship. Overall he is satisfied with the current management. Therapeutic plan includes maintaining current therapy. [facility] Medical History Erectile dysfunction H. pylori infection Surgical History S/P gastric bypass Family History Father Bone cancer Hypertension Diabetes mellitus Hypercholesteremia Mother Diabetes mellitus Daughter Asthma Brother No problems noted. Brother No problems noted. Brother No problems noted. Brother No problems noted. Brother No problems noted. Sister No problems noted. Social History Alcohol intake: current Alcohol intake frequency: a few times a month Cigarettes Per Day: 5 Review of Systems Const Denies chills and Denies fever(s) Card Reports no additional complaints and Denies syncope Resp Denies cough GI Denies abdominal pain and Denies heartburn Reports as per HPI and Denies change in libido Neuro Denies syncope Psych Denies change in libido Endo Denies change in libido Physical Exam Const General: cooperative, healthy appearing, comfortable and no acute distress Orientation/consciousness: patient oriented x3 HEENT Face and sinus: Yes normal facial exam Mouth: moist mucous membranes Neck Neck: Yes normal visual inspection, Yes full ROM and Yes trachea midline Chest Chest palpation & inspection: normal inspection of the chest Resp Effort & Inspection: normal respiratory effort, able to speak in complete sentences and no respiratory distress GI Inspection: Yes normal to inspection Back/Spine/Pelvis Cervical Spine: normal cervical lordosis Thoracic/Lumbar Spine: thoracic and lumbar spine normal to inspection Skin General skin exam: no rashes or lesions noted Neuro General: patient oriented x3, gait normal, tone normal and moves all extremities Extrem General: Yes normal to inspection and Yes capillary refill normal Assessment & Plan Assessment & Plan (1) Erectile dysfunction: Code(s): N52.9 - Male erectile dysfunction, unspecified Plan Continue current therapy Six-month Patient Instructions: Imaging studies, laboratory and physical exam results were discussed and reviewed in detail. No major barriers to patient understanding were identified. An opportunity to ask questions regarding the treatment plan was provided. All questions were answered. The patient expressed understanding and agreement with the above treatment plan. The patient is aware they should contact our office by phone for worsening of their current condition or the appearance of new urologic symptoms. Compliance is encouraged with any medications and followup testing that is ordered. It is a privilege to participate in the urologic care of your patient. If you have any questions or concerns regarding treatment for the above conditions, or other urologic issues, please do not hesitate to contact me. The office telephone contact is [phone]. This note is constructed using voice recognition software. While every effort has been made to ensure accuracy mainframe architect errors may have been included. Yours sincerely, Dr Raza Barcenas MD, [facility] - Urology Providers of Expert, Compassionate Care for the Genitourinary System Coding Level of Care Code Est Pt Level 4 (80623) Diagnoses Erectile dysfunction N52.9
== END 2023-08-08 11:50 | disposition home or self-care (01) ==
PROVIDERS: Visit Provider Urology
DX: N52.9 Male erectile dysfunction, unspecified (principal)
CPT/HCPCS: 99214

== ENCOUNTER → 2023-08-08 10:58 | Outpatient (BNVA) | payer MEDICAID, SELFPAY | PROVIDERS: Visit Provider Urology | DX: N52.9 Male erectile dysfunction, unspecified (principal) | CPT/HCPCS: 99212 ==

== ENCOUNTER 2024-02-28 10:39 | Outpatient (AMB) | payer MEDICAID, SELFPAY ==
--- NOTE | 2024-02-28 10:40 | MHC.OFFVIS ---
Intake Visit Reasons: 6m follow up- Erectile Dys Intake Note: Patient is Present for Telephone Follow Up For Med Review Urology Med: Sildenafil, Tadalfil Antibiotic Allergy:None Blood Thinner:None Studio Sales Associate Required: No Allergies Pt states no food/medication a Allergy (Unknown, Uncoded 02/28/24 10:43) Anaphylaxis Medication List - Last Reconciled 02/28/24 by Raza Barcenas MD cholecalciferol (vitamin D3) 25 mcg PO DAILY sildenafil 100 mg PO ONCE PRN HPI Comments Details: Itzel is a very pleasant German male. They are a patient of Dr Dillon. They are seen in the office today for the following urologic conditions. - erectile dysfunction Telemedicine Evaluation 15 min Consultation [employer] Had muscle pain with daily tadalafil Does respond on demand sildenafil Prescription provided Erectile dysfunction: Good response to low-dose tadalafil Refill provided Review 1 year. He presents today for for continued evaluation and management of erectile dysfunction. Symptoms have been present for/since since 2018 after weight loss surgery. Current treament includes Daily tadalafil. At this time he experiences erections 2/20 , are partial and adequate for vaginal penetration, that undergo rapid detumesence after penetration, GARFIELD 8-11 Moderate ED. Nocturnal erections do occur. Currently they are in a stable relationship. Overall he is satisfied with the current management. Therapeutic plan includes maintaining current therapy. [facility] Medical History Erectile dysfunction H. pylori infection Surgical History S/P gastric bypass Family History Father Bone cancer Hypertension Diabetes mellitus Hypercholesteremia Mother Diabetes mellitus Daughter Asthma Brother No problems noted. Brother No problems noted. Brother No problems noted. Brother No problems noted. Brother No problems noted. Sister No problems noted. Social History Alcohol intake: current Alcohol intake frequency: a few times a month Cigarettes Per Day: 5 Review of Systems Const All systems reviewed & are unremarkable except as noted in HPI and below Reports no additional complaints Resp Reports no additional complaints GI Reports no additional complaints Reports as per HPI Musc Reports no additional complaints Physical Exam Telemedicine evaluation Appropriate responses Regular breathing rate and rhythm HEENT Head: Yes normal to inspection Ears: hearing grossly normal bilaterally Eyes General: appearance normal, both eyes and all related structures Neck Neck: Yes normal visual inspection Chest Chest palpation & inspection: normal inspection of the chest Resp Effort & Inspection: normal respiratory effort and able to speak in complete sentences Telehealth Telehealth Location of provider rendering services: practice address Location of patient: address on file Patient Identification confirmed using: Name, : Yes Telehealth method: voice only Patient verbally consented to treatment: Yes Patient verbally consented to billing insurance company: Yes Patient informed of any privacy concerns related to visit: Yes Assessment & Plan Assessment & Plan (1) Erectile dysfunction: Code(s): N52.9 - Male erectile dysfunction, unspecified Category: Medical Plan Six month follow-up of his Medications: Refilled sildenafil administer 30 minutes to 4 hours before activity 100 mg PO ONCE PRN 30 tabs 2RF sexual activity Patient Instructions: Imaging studies, laboratory and physical exam results were discussed and reviewed in detail. No major barriers to patient understanding were identified. An opportunity to ask questions regarding the treatment plan was provided. All questions were answered. The patient expressed understanding and agreement with the above treatment plan. The patient is aware they should contact our office by phone for worsening of their current condition or the appearance of new urologic symptoms. Compliance is encouraged with any medications and followup testing that is ordered. It is a privilege to participate in the urologic care of your patient. If you have any questions or concerns regarding treatment for the above conditions, or other urologic issues, please do not hesitate to contact me. The office telephone contact is [phone]. This note is constructed using voice recognition software. While every effort has been made to ensure accuracy residency program coordinator errors may have been included. Yours sincerely, Dr Raza Barcenas MD, [facility] - Urology Providers of Expert, Compassionate Care for the Genitourinary System Coding Level of Care Code Tele Est Pt Level 3 (23334) Diagnoses Erectile dysfunction N52.9
== END 2024-02-28 11:12 | disposition home or self-care (01) ==
LOC: HO.HUSH 10:39
PROVIDERS: Visit Provider Urology
DX: N52.9 Male erectile dysfunction, unspecified (principal)
CPT/HCPCS: 99213

== ENCOUNTER → 2024-02-28 10:39 | Outpatient (BNVA) | payer MEDICAID, SELFPAY | PROVIDERS: Visit Provider Urology ==